=== PATIENT | female | born 1950 | race Caucasian/White ===

== ENCOUNTER → 2016-12-03 | Outpatient (CLI) | payer MEDICARE ==
--- NOTE | 2016-12-06 10:20 | MM ---
Reason for exam: screening (asymptomatic). Last mammogram was performed 1 year and 1 month ago. History: Patient is postmenopausal. Cyst aspiration of the right breast, 2001. Cyst aspiration of the left breast, 1999. Excisional biopsy of the right breast, 1995. Physical Findings: A clinical breast exam by your physician is recommended on an annual basis and results should be correlated with mammographic findings. MG 3D Screening Mammo W/Cad Bilateral CC and MLO view(s) were taken. Prior study comparison: October 23, 2015, bilateral MG screening mammo w CAD. January 17, 2014, bilateral MG screening mammo w CAD. The breast tissue is extremely dense which could obscure a lesion on mammography. Finding: There are typically benign calcifications in both breasts. No significant changes in finding since October 23, 2015 and January 17, 2014. ASSESSMENT: Benign, BI-RAD 2 RECOMMENDATION: Routine screening mammogram of both breasts in 1 year.
== END | disposition home or self-care (01) ==
LOC: RADMAMWWP 10:37
PROVIDERS: ATTEND Family Medicine
DX: Z12.31 Encounter for screening mammogram for malignant neoplasm of breast (principal)
CPT/HCPCS: 77063; G0202

== ENCOUNTER → 2017-12-05 | Outpatient (CLI) | payer MEDICARE ==
--- NOTE | 2017-12-05 15:06 | MM ---
Reason for exam: screening (asymptomatic). Last mammogram was performed 1 year ago. History: Patient is postmenopausal. Cyst aspiration of the right breast, 2001. Cyst aspiration of the left breast, 1999. Excisional biopsy of the right breast, 1995. Physical Findings: A clinical breast exam by your physician is recommended on an annual basis and results should be correlated with mammographic findings. MG 3D Screening Mammo W/Cad Bilateral CC, MLO, and XCCL view(s) were taken. Technologist: RT Homer (R)(M) Prior study comparison: December 03, 2016, bilateral MG 3d screening mammo w/cad. October 23, 2015, bilateral MG screening mammo w CAD. The breast tissue is heterogeneously dense. This may lower the sensitivity of mammography. Finding: There are typically benign vascular, round calcifications in both breasts. There is no discrete abnormality. ASSESSMENT: Benign, BI-RAD 2 RECOMMENDATION: Routine screening mammogram of both breasts in 1 year.
--- NOTE | 2017-12-05 15:28 | BD ---
EXAMINATION TYPE: Axial Bone Density DATE OF EXAM: 12/05/2017 CLINICAL HISTORY: 67-year-old female asymptomatic postmenopausal screening Height: 68 inches Weight: 160 FRAX RISK QUESTIONS: Alcohol (3 or more units per day): no Family History (Parent hip fracture): no Glucocorticoids (More than 3mos): no (Ex: prednisone, prednisolone, methylprednisolone, dexamethasone, and hydrocortisone). History of Fracture in Adulthood: no Secondary Osteoporosis: 1. Type 1 Diabetes: no 2. Hyperthyroidism: no 3. Menopause before 45: no 4. Malnutrition: no 5. Chronic liver disease: no Rheumatoid Arthritis: no Current Tobacco Use: no RISK FACTORS HISTORY OF: Family History of Osteoporosis: no Active: yes Diet low in dairy products/other sources of calcium: no Postmenopausal woman: yes Take estrogen and/or progesterone medications: no Lost more than 2 inches in height since high school: no Frequent falls: no Poor Health: no Hyperparathyroidism: no Adrenal Insufficiency: no MEDICATIONS: Prednisone or other steroids: no Thyroid Medications: no Osteoporosis Medications: no Additional Medications: blood pressure; Vitamin D3 EXAM MEASUREMENTS: Bone mineral densitometry was performed using the [employer]. Bone mineral density as measured about the Lumbar spine is: ----- L1-L4(G/cm2): 1.439 T Score Values are as follows: ----- L2: 2.2 ----- L3: 2.1 ----- L4: 1.8 ----- L1-L4: 2.2 Bone mineral density has: Decreased -6.1% since study of: 03/05/2009 Bone mineral density about the R hip (g/cm2): 1.088 Bone mineral density about the L hip (g/cm2): 1.116 T Score values are as follows: -----R Neck: 0.4 -----L Neck: 0.6 -----R Total: 1.3 -----L Total: 1.4 Bone mineral density has: Decreased -7.1% since study of: 03/05/2009 IMPRESSION: Normal (Values between +1 and -1 indicate normal bone mass). Consider repeating this study in 5 year s or sooner if there is some new clinical indication. NOTE: T-SCORE=SD OF THE YOUNG ADULT MEAN.
== END | disposition home or self-care (01) ==
LOC: RADMAMWWP 09:01
PROVIDERS: ATTEND Family Medicine
DX: Z12.31 Encounter for screening mammogram for malignant neoplasm of breast (principal); Z78.0 Asymptomatic menopausal state
CPT/HCPCS: 77063; 77067; 77080

== ENCOUNTER → 2018-12-06 | Outpatient (CLI) | payer MEDICARE ==
--- NOTE | 2018-12-06 14:23 | MM ---
Reason for exam: screening (asymptomatic). Last mammogram was performed 1 year ago. History: Patient is postmenopausal. Cyst aspiration of the right breast, 2001. Cyst aspiration of the left breast, 1999. Excisional biopsy of the right breast, 1995. Physical Findings: A clinical breast exam by your physician is recommended on an annual basis and results should be correlated with mammographic findings. MG 3D Screening Mammo W/Cad Bilateral CC and MLO view(s) were taken. Prior study comparison: December 05, 2017, bilateral MG 3d screening mammo w/cad. December 03, 2016, bilateral MG 3d screening mammo w/cad. The breast tissue is heterogeneously dense. This may lower the sensitivity of mammography. Benign appearing bilateral calcifications. No significant changes when compared with prior studies. ASSESSMENT: Benign, BI-RAD 2 RECOMMENDATION: Routine screening mammogram of both breasts in 1 year.
== END | disposition home or self-care (01) ==
LOC: RADMAMWWP 07:23
PROVIDERS: ATTEND Family Medicine
DX: Z12.31 Encounter for screening mammogram for malignant neoplasm of breast (principal)
CPT/HCPCS: 77063; 77067

== ENCOUNTER 2019-11-21 09:47 | Inpatient (IN) | payer MEDICARE ==
[2019-11-21] MEDS ORDERED: SODIUM CHLORIDE 0.9% 1,000 ML IV ONE (09:55)
[2019-11-21] MEDS ORDERED: LIDOCAINE 1% INJ 10MG/ML (20 ML MDV) ONE (10:06)
[2019-11-21] MEDS ORDERED: LIDOCAINE 1% INJ 10MG/ML (20 ML MDV) SQ ONE (10:12)
[2019-11-21] MEDS ORDERED: MIDAZOLAM 2 MG/2 ML VIAL IV ONE (10:13)
[2019-11-21] MEDS ORDERED: BIVALIRUDIN BOLUS 250 MG/50 ML IV ONE (10:20)
[2019-11-21] MEDS ORDERED: BIVALIRUDIN 250 MG in SODIUM CHLORIDE 0.9% 50 ML IV ONE (10:21)
[2019-11-21] MEDS ORDERED: CLOPIDOGREL 75 MG TAB ONE (10:24)
[2019-11-21] MEDS ORDERED: CLOPIDOGREL 75 MG TAB PO ONE (10:26)
[2019-11-21] MEDS ORDERED: niCARdipine 25 MG/10 ML VIAL ONE (10:27)
[2019-11-21] MEDS ORDERED: NITROGLYCERIN 1000MCG/10ML SYRINGE INTRACORON ONE (10:35)
[2019-11-21] MEDS ORDERED: IOPAMIDOL-370 125ML BTL INJ ONE (10:46)
[2019-11-21] MEDS ORDERED: MAG HYDROX/AL HYDROX/SIMETH 30 ML CUP PO PRN (10:53)
[2019-11-21] MEDS ORDERED: ZOLPIDEM 5 MG TAB PO PRN (10:53)
[2019-11-21] MEDS ORDERED: RX INFO: IV CONTRAST WAS GIVEN 1 EACH MISC MISCELLANE PRN (10:53)
[2019-11-21] MEDS ORDERED: NITROGLYCERIN SL TABS 0.4 MG TAB SUBLINGUAL PRN (10:53)
[2019-11-21] MEDS ORDERED: ATROPINE SULFATE 0.1 MG/ML 10ML SYRINGE IV PRN (10:53)
--- NOTE | 2019-11-21 10:57 | P.CRDCN ---
History of Present Illness Consult date: 11/21/19 Chief complaint: Chest pain History of present illness: This is a very pleasant 69-year-old female patient with no significant past medical history was brought through ambulance to the emergency department with acute inferior ST patient myocardial infarction beach she was in her usual state until earlier today when she started experiencing discomfort involving the left arm. She did have mild ongoing chest discomfort with it. Ambulance was called and the patient was brought to the emergency department where she was found to be in acute inferior ST elevation myocardial infarction. As a matter of fact the patient directly was brought to the cardiac [facility] for emergent heart catheterization which revealed acute total occlusion of the mid RCA with thrombus burden. She underwent successful aspiration thrombectomy of the RCA along with successful stenting of the RCA with an excellent angiographic results and with a ALEJANDRO-3 flow bite. She also was found to have severe disease involving the left circumflex coronary artery. By the end of the procedure, the patient was chest pain-free, no significant ST or T-wave abnormalities noted, and the patient was bradycardic throughout the case. She is going to be admitted to the intensive care unit. She will be on dual antiplatelet therapy along with high intensity statin. I would hold any beta oliver at this point in view of the bradycardia. I'm going to start the patient on small dose of MINDY inhibitor was less tearful 2.5 mg by mouth daily. An echocardiogram will be performed to establish LV function. We'll continue following up with the patient Medications and Allergies Allergies Allergy/AdvReac Type Severity Reaction Status Date / Time lisinopril Allergy Cough Verified 11/21/19 10:21 Physical Exam Vitals: Intake and Output 11/20/19 11/21/19 11/21/19 22:59 06:59 14:59 Intake Total 100 Balance 100 Intake: IV 100 Other: Weight 72.7 kg - Constitutional General appearance: no acute distress - Respiratory Respiratory: bilateral: CTA - Cardiovascular Rhythm: regular Heart sounds: normal: S1, S2 Abnormal Heart Sounds: systolic murmur Results Intake and Output 11/20/19 11/21/19 11/21/19 22:59 06:59 14:59 Intake Total 100 Balance 100 Intake: IV 100 Other: Weight 72.7 kg Patient Weight 11/22/19 06:59 Weight 72.7 kg Assessment and Plan Assessment: Assessment #[address] elevation myocardial infarction #2 dyslipidemia Plan #1 dual antiplatelet therapy #2 high intensity statin #3 lisinopril #4 hold beta oliver in view of the bradycardia #5 an echocardiogram was Doppler #6 follow-up with the patient Thank you for allowing us participate in her care
[2019-11-21] MEDS ORDERED: SODIUM CHLORIDE 0.9% 1,000 ML IV SCH (11:00)
[2019-11-21 11:14] LABS: Glucose,Whole Blood 115 mg/dL (75-99)
--- NOTE | 2019-11-21 14:25 | CC ---
CARDIAC CATHETERIZATION REPORT DATE OF SERVICE: 11/21/2019 PERFORMING PHYSICIAN: Celso Dupree MD. PROCEDURE PERFORMED: 1. Selective right and left coronary angiogram. 2. Aspiration thrombectomy from the right coronary artery. 3. Successful stenting of the right coronary artery using 3.0 x 23 mm Xience FELA with an excellent angiographic results and reduction of stenosis from 100% to 0%. 4. Left heart catheterization. INDICATION: This is a pleasant 69-year-old female patient with no significant past medical history who was brought to the emergency by ambulance with left arm discomfort and EKG concerning for acute inferior ST-elevation myocardial infarction. The decision was toward an emergent heart catheterization with possible percutaneous coronary intervention. APPROACH: Right common femoral artery. COMPLICATION: None. LEVEL OF SEDATION: Moderate with sedation length of 35 minutes. Door to balloon was 42 minutes. PROCEDURE DESCRIPTION: After obtaining an informed consent, the patient was brought to the cardiac label sewer. The right common femoral artery was cannulated using micropuncture technique, the micropuncture wire passed easily, then I placed a 6-[place] sheath 11 cm in the right common femoral artery. Subsequently, I did selective right and left coronary angiogram using JL4 and JR4 catheters. Subsequently, I did intervene on the RCA, please see a separate paragraph for that. Then I did left heart catheterization. The procedure was completed without any complication. SELECTIVE CORONARY ANGIOGRAM: 1. The right coronary artery is a large caliber vessel, it is a dominant vessel. The RCA is acutely occluded in the midportion. 2. The left main is angiographically normal, it bifurcates into LCX and LAD. 3. The LCX is a large caliber vessel, it is a nondominant vessel. The proximal circumflex is angiographically normal. The mid circumflex gives rise into a large OM branch which has a lesion appeared to be in the range of 70% to 80%. and the circumflex continues after that as a small-caliber vessel in the AV groove. 4. The LAD, the proximal LAD appeared to have mild disease only. The mid LAD appeared to be angiographically normal and the LAD distally appeared to be normal. The LAD gives rise into a large diagonal branch which seems to be angiographically normal. 5. PCI of the RCA. Anticoagulation was initiated using Angiomax with bolus and drip. Subsequently I did engage the RCA using JR3.5 guide. I did cross the acute total occlusion of the mid RCA using a whisper wire. Aspiration thrombectomy was performed using an [place] catheter. Subsequently, I did direct stenting of the lesion using 3.0 x 23 mm Xience FELA where the stent was positioned under fluoroscopy guidance and deployed under 20 atmospheres for 20 seconds. I post- dilated the stent using 3.5 mm NC balloon. The final angiogram was performed and showed a great angiographic results with a very small non flow-limiting dissection involving the proximal edge of the stent which I decided to leave it alone. 6. .. HEMODYNAMICS: The LVEDP was 20 mmHg mild gradient across the aortic valve. CONCLUSION: 1. Acute total occlusion of the RCA, successful stenting of the RCA. 2. Severe disease involving the first obtuse marginal branch of the left circumflex. 3. Mild disease involving the left anterior descending artery. 4. Elevated left ventricular end-diastolic pressure. POSTPROCEDURE MANAGEMENT: 1. Dual anti-platelet therapy. 2. Risk factor modifications. 3. PCI of the LCX. 4. Follow up with the patient. MMODL / IJN: [id number] /
[2019-11-21] MEDS: ATORVASTATIN 80 MG TAB PO SCH (20:14)
[2019-11-22 06:02] LABS: Basophils % (A) 1 %; Eosinophils # (A) 0.1 k/uL (0-0.7); Eosinophils % (A) 2 %; HGB 13.6 gm/dL (11.4-16.0); Lymphocytes # (A) 1.6 k/uL (1.0-4.8); Lymphocytes % (A) 21 %; MCH 31.5 pg (25.0-35.0); MCHC 32.5 g/dL (31.0-37.0); MCV 96.9 fL (80.0-100.0); Mean Platelet Volume 7.1; Monocytes # (A) 0.5 k/uL (0-1.0); Monocytes % (A) 6 %; Neutrophils # (A) 5.4 k/uL (1.3-7.7); Neutrophils % (A) 70 %; Platelet Count 272 k/uL (150-450); RBC 4.33 m/uL (3.80-5.40); RDW 12.2 % (11.5-15.5); WBC 7.7 k/uL (3.8-10.6)
[2019-11-22 06:15] LABS: ALT 14 U/L (4-34); AST 37 U/L (14-36); African American GFR (CKD) >90 (>60 ml/min/1.73 sqM); Albumin 3.7 g/dL (3.5-5.0); Alkaline Phosphatase 67 U/L (38-126); Anion Gap 6 mmol/L; Blood Urea Nitrogen 12 mg/dL (7-17); Carbon Dioxide 27 mmol/L (22-30); Chloride 105 mmol/L (98-107); Glucose 110 mg/dL (74-99); Non-African American GFR(CKD) 80 (>60 ml/min/1.73 sqM); Potassium 4.1 mmol/L (3.5-5.1); Sodium 138 mmol/L (137-145); Total Bilirubin 0.6 mg/dL (0.2-1.3); Total Protein 6.7 g/dL (6.3-8.2)
--- NOTE | 2019-11-22 07:30 | P.PN ---
Subjective Progress Note Date: 11/22/19 Principal diagnosis: STEMI This is a 69-year-old female patient with hypertension who presented to the hospital with a chest discomfort and was diagnosed with acute inferior ST pa tient myocardial infarction. She underwent an emergent heart catheterization and was found to have acute total occlusion of the mid RCA which was opened and stented with severe disease involving the left circumflex coronary artery. The patient was seen today, 11/22/2019. She is asymptomatic from a cardiovascular standpoint of view. She denies chest pain, chest discomfort, shortness of breath, dizziness, heart racing, and no loss of consciousness but she has been maintaining normal sinus mechanism. No arrhythmia noted throughout her hospital stay in the ICU. Hemodynamically she is stable but she is on dual antiplatelet therapy along with high intensity statin. An echocardiogram was ordered and will follow-up with that. The right groin is soft and nontender and without any bruises. Objective - Vital Signs Vital signs: Vital Signs Temp 98.4 F 11/22/19 04:00 Pulse 61 11/22/19 07:00 Resp 19 11/22/19 07:00 BP 129/68 11/22/19 07:00 Pulse Ox 93 L 11/22/19 07:00 Intake & Output 11/21/19 11/22/19 11/22/19 18:59 06:59 18:59 Intake Total 1525 1130 Output Total 400 0 Balance 1525 730 0 Weight 72.7 kg 72.1 kg Intake: IV 625 450 Sodium Chloride 0.9% 1, 525 450 000 ml @ 75 mls/hr IV . [id number] KIERA Rx#:[id number] Intake, IV Titration 450 Amount Sodium Chloride 0.9% 1, 450 000 ml @ 75 mls/hr IV . [id number] KIERA Rx#:[id number] Oral 450 680 Output: Urine 400 0 Other: Voiding Method Bedpan Toilet Bedside Commode # Voids 1 1 ABP, PAP, CO, CI - Last Documented Arterial Blood Pressure 162/75 - Constitutional General appearance: Present: no acute distress - Respiratory Respiratory: bilateral: CTA - Cardiovascular Rhythm: regular Heart sounds: normal: S1, S2 - Labs CBC & Chem 7: 11/22/19 05:39 11/22/19 05:39 Labs: Abnormal Lab Results - Last 24 Hours (Table) 11/21/19 11/22/19 Range/Units 11:11 05:39 Glucose 110 H (74-99) mg/dL POC Glucose (mg/dL) 115 H (75-99) mg/dL AST 37 H (14-36) U/L Assessment and Plan Assessment: Assessment #[address] elevation myocardial infarction #2 dyslipidemia Plan #1 dual antiplatelet therapy #2 high intensity statin #3 add losartan to the current medical regimen #4 add metoprolol to the current medical regimen #5 follow-up on the echocardiogram #6 the patient can be transferred out of the ICU
[2019-11-22] MEDS ORDERED: LISINOPRIL 2.5 MG TAB PO SCH (09:00)
[2019-11-22] MEDS: CLOPIDOGREL 75 MG TAB PO SCH (09:55)
[2019-11-22] MEDS: METOPROLOL TARTRATE 12.5 MG TAB PO SCH ×2 (09:55→20:23)
[2019-11-22] MEDS: LOSARTAN 25 MG TAB PO SCH (09:56)
[2019-11-22 10:04] VITALS: BMI 24.1
--- NOTE | 2019-11-22 16:00 | ECHOF ---
Referral Reason:STEMI MEASUREMENTS -------- HEIGHT: 172.7 cm WEIGHT: 72.6 kg BP: 153/69 IVSd: 0.9 cm (0.6 - 1.1) LVIDd: 3.7 cm (3.9 - 5.3) LVPWd: 1.1 cm (0.6 - 1.1) IVSs: 1.7 cm LVIDs: 2.5 cm LVPWs: 1.0 cm RVIDd: 2.5 cm (< 3.3) LAESV Index (A-L): 16.65 ml/m Ao Diam: 2.7 cm (2.0 - 3.7) AV Cusp: 1.6 cm (1.5 - 2.6) EPSS: 0.5 cm MV E Arnie: 0.76 m/s MV DecT: 252 ms MV A Arnie: 1.00 m/s MV E/A Ratio: 0.76 RAP: 5.00 mmHg RVSP: 32.55 mmHg MV EF SLOPE: 52.48 mm/s (70 - 150) MV EXCURSION: 9.72 mm (> 18.000) FINDINGS -------- Sinus rhythm. This was a technically difficult study with suboptimal apical views. Patient is post cardiac catheterization and cannot be in left lateral position. The left ventricular size is normal. Left ventricular wall thickness is normal. Overall left vent ricular systolic function is low-normal with, an EF between 50 - 55 %. The diastolic filling patter n is normal for the age of the patient {E/E'}. The right ventricle is normal in size. Normal LA size by volume 22+/-6 ml/m2. The right atrial size is normal. 5.0mg of Lumason was utilized for enhancement of images Interatrial and interventricular septum intact. There is mild aortic valve sclerosis. There is no evidence of aortic regurgitation. There is no e vidence of aortic stenosis. No mitral regurgitation. Mild tricuspid regurgitation present. There is no evidence of pulmonary hypertension. The right v entricular systolic pressure, as measured by Doppler, is 32.55mmHg. There is no pulmonic regurgitation present. The aortic root size is normal. Normal inferior vena cava with normal inspiratory collapse consistent with estimated right atrial pre ssure of 5 mmHg. There is no pericardial effusion. CONCLUSIONS -------- 1. Sinus rhythm. 2. This was a technically difficult study with suboptimal apical views. 3. Patient is post cardiac catheterization and cannot be in left lateral position. 4. The left ventricular size is normal. 5. Left ventricular wall thickness is normal. 6. Overall left ventricular systolic function is low-normal with, an EF between 50 - 55 %. 7. The diastolic filling pattern is normal for the age of the patient {E/E'} 8. The right ventricle is normal in size. 9. Normal LA size by volume 22+/-6 ml/m2. 10. The right atrial size is normal. 11. 5.0mg of Lumason was utilized for enhancement of images 12. Interatrial and interventricular septum intact. 13. There is mild aortic valve sclerosis. 14. There is no evidence of aortic regurgitation. 15. There is no evidence of aortic stenosis. 16. No mitral regurgitation. 17. Mild tricuspid regurgitation present. 18. There is no evidence of pulmonary hypertension. 19. The right ventricular systolic pressure, as measured by Doppler, is 32.55mmHg. 20. There is no pulmonic regurgitation present. 21. The aortic root size is normal. 22. Normal inferior vena cava with normal inspiratory collapse consistent with estimated right atrial pressure of 5 mmHg. 23. There is no pericardial effusion. PRESS READER: Amy Milner RDCS
[2019-11-22] MEDS: ATORVASTATIN 80 MG TAB PO SCH (20:23)
[2019-11-23 08:07] VITALS: BP 111/58; PULSE 75; RESP 16; TEMP 98
[2019-11-23] MEDS: CLOPIDOGREL 75 MG TAB PO SCH (08:37)
[2019-11-23] MEDS: METOPROLOL TARTRATE 12.5 MG TAB PO SCH (08:37)
[2019-11-23] MEDS: LOSARTAN 25 MG TAB PO SCH (08:37)
[2019-11-23] MEDS ORDERED: ASPIRIN 81 MG PO SCH (10:30)
--- NOTE | 2019-11-23 11:14 | P.PN ---
Subjective Progress Note Date: 11/23/19 This is a 69-year-old female who presented to the hospital with an acute inferior ST elevation myocardial infarction. She was taken to the cardiac catheterization lab by Dr. Liz where she underwent angioplasty and stenting of the right coronary artery. Patient also has a significant blockage in her circumflex artery. She was seen and examined this morning, denied any chest pain or difficulty in breathing she's been ambulating without any difficulty. Blood pressure 110/50 with a heart rate in the 70s, 94% on room air. Echocardiogram with Doppler study revealed an ejection fraction of 50-55%. Objective - Vital Signs Vital signs: Vital Signs Temp 98 F 11/23/19 08:00 Pulse 75 11/23/19 08:00 Resp 16 11/23/19 08:00 BP 111/58 11/23/19 08:00 Pulse Ox 94 L 11/23/19 08:00 Intake & Output 11/22/19 11/23/19 11/23/19 18:59 06:59 18:59 Intake Total 790 180 Output Total 0 Balance 790 180 Weight 72.1 kg 71.6 kg Intake: Oral 790 180 Output: Urine 0 Other: Voiding Method Toilet Toilet Toilet # Voids 1 ABP, PAP, CO, CI - Last Documented Arterial Blood Pressure 162/75 - Exam PHYSICAL EXAMINATION: GENERAL: 69-year-old female in no acute distress at the time of my examination HEENT: Head is atraumatic, normocephalic. Pupils equal, round. Sclera anicteric. Conjunctiva are clear. Mucous membranes of the mouth are moist. Neck is supple. There is no elevated jugular venous pressure. No carotid bruit is heard. HEART EXAMINATION: Heart S1, S2 normal. No murmur or gallop heard. CHEST EXAMINATION: Lungs are clear to auscultation and precussion. No chest wall tenderness is noted on palpation or with deep breathing. ABDOMEN: Soft, nontender. Bowel sounds are heard. No organomegaly noted. EXTREMITIES: 2+ peripheral pulses with no evidence of peripheral edema and no calf tenderness noted. NEUROLOGIC [patient is awake, alert and oriented 3 . - Labs CBC & Chem 7: 11/22/19 05:39 11/22/19 05:39 Assessment and Plan Plan: Assessment and plan #[address] elevation myocardial infarction, status post angioplasty and stenting of the RCA. Patient also has a critical lesion in the circumflex. #2 hyperlipidemia Plan Patient may be discharged home today on dual antiplatelet therapy and high intensity statin. She will also be on losartan, metoprolol, and sublingual nitroglycerin. Echocardiogram with Doppler study revealed an ejection fraction of 50-55%. From cardiology's perspective, patient may be able to be discharged home today. We will make a follow-up appointment to see Dr. Liz in the office post discharge. DNP note has been reviewed, I agree with a documented findings and plan of care. Patient was seen and examined.
== END 2019-11-23 12:33 | disposition home or self-care (01) | DRG 247 ==
LOC: 2ORMAIN 09:47 → 2SICU 10:52 → 3SCARD 11-22 16:07
PROVIDERS: ADMIT Internal Medicine Interventional Cardiology; ATTEND Internal Medicine Interventional Cardiology
PROC: 4A023N7 Measurement of Cardiac Sampling and Pressure, Left Heart, Percutaneous Approach (ICD-10-PCS; principal; 2019-11-21 09:58)
PROC: B2111ZZ Fluoroscopy of Multiple Coronary Arteries using Low Osmolar Contrast (ICD-10-PCS; principal; 2019-11-21 09:58)
PROC: 02C03ZZ Extirpation of Matter from Coronary Artery, One Artery, Percutaneous Approach (ICD-10-PCS; principal; 2019-11-21 09:58)
PROC: 027034Z Dilation of Coronary Artery, One Artery with Drug-eluting Intraluminal Device, Percutaneous Approach (ICD-10-PCS; principal; 2019-11-21 09:58)
DX: I21.19 ST elevation (STEMI) myocardial infarction involving other coronary artery of inferior wall (principal); E78.00 Pure hypercholesterolemia, unspecified; I25.10 Atherosclerotic heart disease of native coronary artery without angina pectoris; I10 Essential (primary) hypertension; E78.5 Hyperlipidemia, unspecified; R00.1 Bradycardia, unspecified; Z79.899 Other long term (current) drug therapy
CPT/HCPCS: 80053; 85025; 93306; 93458

== ENCOUNTER → 2020-01-25 | Outpatient (CLI) | payer MEDICARE ==
[2020-01-25 11:13] LABS: HCT 43.1 % (34.0-46.0); MCH 31.6 pg (25.0-35.0); MCHC 32.5 g/dL (31.0-37.0); MCV 97.1 fL (80.0-100.0); Platelet Count 261 k/uL (150-450); RBC 4.44 m/uL (3.80-5.40); RDW 12.3 % (11.5-15.5); WBC 5.7 k/uL (3.8-10.6)
[2020-01-25 11:27] LABS: Potassium 4.5 mmol/L (3.5-5.1)
== END | disposition home or self-care (01) ==
LOC: LABWHC1 09:48
PROVIDERS: ATTEND Internal Medicine Interventional Cardiology
DX: Z01.818 Encounter for other preprocedural examination (principal); I25.10 Atherosclerotic heart disease of native coronary artery without angina pectoris
CPT/HCPCS: 80051; 82565; 84520; 85027

== ENCOUNTER 2020-01-31 06:15 | Day surgery (SDC) | payer MEDICARE ==
[~2020-01-31 06:15] MED LIST: ALPRAZolam 0.25 MG TAB PO PRN; ALPRAZolam 0.5 MG TAB PO PRN; ASPIRIN 325 MG TAB PO STA; ATORVASTATIN 80 MG TAB PO STA; NITROGLYCERIN SL TABS 0.4 MG TAB SUBLINGUAL PRN; SODIUM CHLORIDE 0.9% 1,000 ML in EMPTY BAG 1 BAG IV ONE
[2020-01-31] MEDS ORDERED: VERAPAMIL 2.5 MG/ML 2 ML AMP ONE (07:23)
[2020-01-31] MEDS ORDERED: LIDOCAINE 1% INJ 10MG/ML (20 ML MDV) ONE (07:23)
[2020-01-31] MEDS ORDERED: MIDAZOLAM 2 MG/2 ML VIAL IVP ONE (07:43)
[2020-01-31] MEDS ORDERED: LIDOCAINE 1% INJ 10MG/ML (20 ML MDV) SQ ONE (07:45)
[2020-01-31] MEDS ORDERED: BIVALIRUDIN BOLUS 250 MG/50 ML IV ONE (07:49)
[2020-01-31] MEDS ORDERED: BIVALIRUDIN 250 MG in SODIUM CHLORIDE 0.9% 50 ML IV ONE (07:50)
[2020-01-31] MEDS: NITROGLYCERIN 1000MCG/10ML SYRINGE INTRACORON ONE ×3 (08:01→08:16)
[2020-01-31] MEDS ORDERED: IOPAMIDOL-370 100ML BTL INJ ONE (08:17)
[2020-01-31] MEDS ORDERED: CLOPIDOGREL 75 MG TAB ONE (08:18)
[2020-01-31] MEDS ORDERED: CLOPIDOGREL 75 MG TAB PO ONE (08:18)
[2020-01-31] MEDS ORDERED: ZOLPIDEM 5 MG TAB PO PRN (08:28)
[2020-01-31] MEDS ORDERED: RX INFO: IV CONTRAST WAS GIVEN 1 EACH MISC MISCELLANE PRN (08:28)
[2020-01-31] MEDS ORDERED: ATROPINE SULFATE 0.1 MG/ML 10ML SYRINGE IV PRN (08:28)
[2020-01-31] MEDS ORDERED: MAG HYDROX/AL HYDROX/SIMETH 30 ML CUP PO PRN (08:28)
[2020-01-31] MEDS ORDERED: METOPROLOL TARTRATE 12.5 MG TAB PO SCH (09:00)
--- NOTE | 2020-01-31 11:25 | PTCA ---
PERCUTANEOUSTRANS CORORONARY ANGIOGRAPHY DATE OF SERVICE: 01/31/2020 PERFORMING PHYSICIAN: Celso Dupree MD. PROCEDURE PERFORMED: Successful stenting of the mid left circumflex using 2.0.0 x 15 mm yarely and 2.5 x 8 mm Xience FELA with an excellent angiographic results. INDICATION: This is a very pleasant 69-year-old female patient with history of coronary artery disease who is known to have severe disease involving the mid left circumflex, was brought today for PCI of the LCX. APPROACH: Right common femoral artery. COMPLICATION: None. LEVEL OF SEDATION: Moderate with sedation length of 36 minutes. PROCEDURE DESCRIPTION: After obtaining an informed consent, the patient was brought to the cardiac cath lab nurse. The right common femoral artery was cannulated using micropuncture technique and a micropuncture wire passed easily, then I placed a 6-[place]izen [place] sheath at the right common femoral artery. Anticoagulation was initiated using Angiomax with bolus and drip. Subsequently, I did engage the left main using an XP3 guide. I did wire the left circumflex using a whisper wire and run-through wire because the circumflex was very tortuous. After that PTCA ballooning was performed using 2.0 x 12 mm balloon before I deployed 2.0 x 15 mm Yare[place] drug-eluting stent where the stent was positioned under fluoroscopy guidance and deployed under 18 atmospheres for 20 seconds. The following angiogram showed a hazy area proximal to the stented segment and I decided to cover that with a stent. I deployed 2.5 x 8 mm Xience FELA where the stent was positioned under fluoroscopy guidance and deployed under 16 atmospheres for 20 seconds. The area of overlap between the 2 stents was dilated using the stent balloon. The final angiogram showed excellent angiographic results and the procedure was completed without any complication. POSTPROCEDURE MANAGEMENT: 1. Dual anti-platelet therapy. 2. Risk factors modifications. 3. Follow up with the patient. MMODL / IJN: [id number] /
[2020-01-31] MEDS: SODIUM CHLORIDE 0.9% 1,000 ML IV SCH ×2 (12:25→23:04)
[2020-01-31 15:06] VITALS: BMI 23.2
[2020-01-31] MEDS ORDERED: ACETAMINOPHEN TAB 325 MG TAB PO PRN (15:28)
[2020-01-31] MEDS ORDERED: ATORVASTATIN 80 MG TAB PO SCH (21:00)
[2020-01-31] MEDS: METOPROLOL TARTRATE 12.5 MG TAB PO SCH (21:23)
[2020-02-01 08:15] LABS: Basophils # (A) 0.1 k/uL (0-0.2); Basophils % (A) 1 %; Eosinophils # (A) 0.2 k/uL (0-0.7); Eosinophils % (A) 5 %; HCT 40.3 % (34.0-46.0); Lymphocytes % (A) 21 %; MCH 31.4 pg (25.0-35.0); MCHC 32.3 g/dL (31.0-37.0); MCV 97.3 fL (80.0-100.0); Mean Platelet Volume 7.1; Monocytes # (A) 0.2 k/uL (0-1.0); Monocytes % (A) 5 %; Neutrophils # (A) 3.3 k/uL (1.3-7.7); Neutrophils % (A) 67 %; Platelet Count 214 k/uL (150-450); RBC 4.14 m/uL (3.80-5.40); RDW 12.2 % (11.5-15.5); WBC 4.9 k/uL (3.8-10.6)
[2020-02-01] MEDS: METOPROLOL TARTRATE 12.5 MG TAB PO SCH (08:18)
[2020-02-01 08:34] LABS: African American GFR (CKD) >90 (>60 ml/min/1.73 sqM); Anion Gap 5 mmol/L; Blood Urea Nitrogen 9 mg/dL (7-17); Calcium 8.7 mg/dL (8.4-10.2); Carbon Dioxide 28 mmol/L (22-30); Chloride 106 mmol/L (98-107); Glucose 114 mg/dL (74-99); Non-African American GFR(CKD) 85 (>60 ml/min/1.73 sqM); Potassium 4.2 mmol/L (3.5-5.1); Sodium 139 mmol/L (137-145)
[2020-02-01] MEDS ORDERED: LOSARTAN 25 MG TAB PO SCH (09:00)
[2020-02-01] MEDS ORDERED: ASPIRIN 81 MG PO SCH (09:00)
[2020-02-01] MEDS ORDERED: LACTOBACILLUS ACIDOPH & BULGAR 1 EACH PACKET PO SCH (09:00)
[2020-02-01] MEDS ORDERED: CLOPIDOGREL 75 MG TAB PO SCH (09:00)
[2020-02-01 09:04] VITALS: BP 120/80; PULSE 74; RESP 18; TEMP 97.9
--- NOTE | 2020-02-01 14:35 | DS ---
DISCHARGE SUMMARY ADMISSION DATE: 01/31/2020 DISCHARGE DATE: 02/01/2020 BRIEF HISTORY: This is a 69-year-old female patient who was admitted yesterday and underwent successful stenting of the left circumflex with an excellent angiographic results and without any complication. The patient was seen today. She is going to be discharged home. I will follow up with the patient in the office next week. MMANAIS / ZUHAIR: [id number] /
== END 2020-02-01 10:13 | disposition home or self-care (01) ==
LOC: CATHCVL 06:15 → 3NCARDOBS 10:53 → CATHCVL 02-01 10:13
PROVIDERS: ATTEND Internal Medicine Interventional Cardiology
DX: I25.10 Atherosclerotic heart disease of native coronary artery without angina pectoris (principal); I10 Essential (primary) hypertension; E78.5 Hyperlipidemia, unspecified; Z79.02 Long term (current) use of antithrombotics/antiplatelets; Z79.82 Long term (current) use of aspirin; Z79.899 Other long term (current) drug therapy; Z82.49 Family history of ischemic heart disease and other diseases of the circulatory system
CPT/HCPCS: 80048; 85025; C9600; C1769 ×4; C1725; C1887; C1894; C1874 ×2; J2250; J2001; J0583; Q9967

== ENCOUNTER 2020-10-10 08:30 | Emergency (ER) | payer MEDICARE ==
[2020-10-10 08:35] VITALS: TEMP 98
--- NOTE | 2020-10-10 08:53 | ED ---
General Adult HPI - General Chief complaint: Recheck/Abnormal Lab/Rx Stated complaint: High BP/blood in urine Time Seen by Provider: 10/10/20 08:38 Source: patient, RN notes reviewed Mode of arrival: ambulatory Limitations: no limitations - History of Present Illness Initial comments: Patient is a pleasant 70-year-old female presenting to the emergency department with concerns regarding hematuria. Patient has had multiple episodes of hematuria and did see her urologist in May. Patient did have computed tomography scan done as well as cystoscopy. Patient states there is unclear source. Patient denies any dysuria. Patient has had multiple episodes since being on Plavix. Patient is still on Plavix. Patient has not had an episode since May and states she is fearful because of it. Patient states she did take her blood pressure and it was high, 180/100. No chest pain or dyspnea. No abdominal pain. No other areas of bleeding. - Related Data Home Medications Medication Instructions Recorded Confirmed Atorvastatin [Lipitor] 40 mg PO HS 10/10/20 10/10/20 Fluorometholone 0.1% Ophth Apurva 1 drop LEFT EYE DAILY 10/10/20 10/10/20 [Fml] Metoprolol Tartrate [Lopressor] 12.5 mg PO BID 10/10/20 10/10/20 Previous Rx's Medication Instructions Recorded Aspirin 81 mg PO DAILY #30 chew 11/23/19 Clopidogrel [Plavix] 75 mg PO DAILY #30 tab 11/23/19 Losartan [Cozaar] 12.5 mg PO DAILY #30 tab 11/23/19 Nitroglycerin Sl Tabs [Nitrostat] 0.4 mg SUBLINGUAL Q5M PRN #25 tab 11/23/19 Allergies Allergy/AdvReac Type Severity Reaction Status Date / Time lisinopril AdvReac Cough Verified 10/10/20 09:05 Review of Systems ROS Statement: Those systems with pertinent positive or pertinent negative responses have been documented in the HPI. ROS Other: All systems not noted in ROS Statement are negative. Constitutional: Denies: fever, chills Eyes: Denies: eye pain ENT: Denies: ear pain Respiratory: Denies: cough Cardiovascular: Denies: chest pain Endocrine: Denies: fatigue Gastrointestinal: Denies: abdominal pain, nausea, vomiting Genitourinary: Reports: hematuria. Denies: urgency, dysuria, frequency Musculoskeletal: Denies: back pain Skin: Denies: rash Neurological: Denies: weakness Past Medical History Past Medical History: Asthma, Hyperlipidemia, Hypertension, Myocardial Infarction (CT) Last Myocardial Infarction Date:: 11/21/19 History of Any Multi-Drug Resistant Organisms: None Reported Past Surgical History: Appendectomy, Heart Catheterization With Stent Additional Past Surgical History / Comment(s): lt cornea transplant, Left cataract , colonoscopy Past Anesthesia/Blood Transfusion Reactions: No Reported Reaction Date of Last Stent Placement:: 11/21/19 Past Psychological History: No Psychological Hx Reported Smoking Status: Never smoker Past Alcohol Use History: None Reported Past Drug Use History: None Reported - Past Family History Father History Unknown: Yes Family Medical History: Coronary Artery Disease (CAD) Mother Family Medical History: Coronary Artery Disease (CAD) General Exam Limitations: no limitations General appearance: alert, in no apparent distress Head exam: Present: normocephalic Eye exam: Present: normal appearance Neck exam: Present: normal inspection Respiratory exam: Present: normal lung sounds bilaterally Cardiovascular Exam: Present: regular rate, normal rhythm GI/Abdominal exam: Present: soft. Absent: distended, tenderness, guarding, rebound, rigid, pulsatile mass Extremities exam: Present: normal inspection Back exam: Present: normal inspection. Absent: CVA tenderness (R), CVA tenderness (L) Neurological exam: Present: alert Psychiatric exam: Present: normal affect, normal mood Skin exam: Present: normal color Course Vital Signs 10/10/20 10/10/20 08:33 09:32 Temperature 98 F Pulse Rate 109 H 72 Respiratory 20 18 Rate Blood Pressure 176/95 145/78 O2 Sat by Pulse 97 98 Oximetry Medical Decision Making - Medical Decision Making Patient reevaluated and resting comfortably in bed. Blood pressure improved. Patient symptom-free. Patient updated on results and need for follow-up. Patient states last stents were placed in November - Lab Data Result diagrams: 10/10/20 09:09 10/10/20 09:09 Lab Results 10/10/20 10/10/20 10/10/20 Range/Units 09:09 09:09 09:09 WBC 8.1 (3.8-10.6) k/uL RBC 4.75 (3.80-5.40) m/uL Hgb 15.9 (11.4-16.0) gm/dL Hct 45.6 (34.0-46.0) % MCV 95.8 (80.0-100.0) fL MCH 33.4 (25.0-35.0) pg MCHC 34.8 (31.0-37.0) g/dL RDW 11.9 (11.5-15.5) % Plt Count 299 (150-450) k/uL MPV 6.8 Neutrophils % 80 % Lymphocytes % 14 % Monocytes % 4 % Eosinophils % 1 % Basophils % 1 % Neutrophils # 6.5 (1.3-7.7) k/uL Lymphocytes # 1.1 (1.0-4.8) k/uL Monocytes # 0.3 (0-1.0) k/uL Eosinophils # 0.1 (0-0.7) k/uL Basophils # 0.0 (0-0.2) k/uL PT 10.1 (9.0-12.0) sec INR 0.9 (<1.2) APTT 22.1 (22.0-30.0) sec Sodium 137 (137-145) mmol/L Potassium 4.3 (3.5-5.1) mmol/L Chloride 103 (98-107) mmol/L Carbon Dioxide 26 (22-30) mmol/L Anion Gap 8 mmol/L BUN 10 (7-17) mg/dL Creatinine 0.92 (0.52-1.04) mg/dL Est GFR (CKD-EPI)AfAm 74 (>60 ml/min/1.73 sqM) Est GFR (CKD-EPI)NonAf 64 (>60 ml/min/1.73 sqM) Glucose 135 H (74-99) mg/dL Calcium 10.0 (8.4-10.2) mg/dL Total Bilirubin 0.8 (0.2-1.3) mg/dL AST 29 (14-36) U/L ALT 20 (4-34) U/L Alkaline Phosphatase 97 (38-126) U/L Total Protein 8.0 (6.3-8.2) g/dL Albumin 4.8 (3.5-5.0) g/dL Urine Color Urine Appearance (Clear) Urine pH (5.0-8.0) Ur Specific [place] (1.001-1.035) Urine Protein (Negative) Urine Glucose (UA) (Negative) Urine Ketones (Negative) Urine Blood (Negative) Urine Nitrite (Negative) Urine Bilirubin (Negative) Urine Urobilinogen (<2.0) mg/dL Ur Leukocyte Esterase (Negative) Urine RBC (0-5) /hpf Urine WBC (0-5) /hpf Urine Mucus (None) /hpf 10/10/20 Range/Units 09:32 WBC (3.8-10.6) k/uL RBC (3.80-5.40) m/uL Hgb (11.4-16.0) gm/dL Hct (34.0-46.0) % MCV (80.0-100.0) fL MCH (25.0-35.0) pg MCHC (31.0-37.0) g/dL RDW (11.5-15.5) % Plt Count (150-450) k/uL MPV Neutrophils % % Lymphocytes % % Monocytes % % Eosinophils % % Basophils % % Neutrophils # (1.3-7.7) k/uL Lymphocytes # (1.0-4.8) k/uL Monocytes # (0-1.0) k/uL Eosinophils # (0-0.7) k/uL Basophils # (0-0.2) k/uL PT (9.0-12.0) sec INR (<1.2) APTT (22.0-30.0) sec Sodium (137-145) mmol/L Potassium (3.5-5.1) mmol/L Chloride (98-107) mmol/L Carbon Dioxide (22-30) mmol/L Anion Gap mmol/L BUN (7-17) mg/dL Creatinine (0.52-1.04) mg/dL Est GFR (CKD-EPI)AfAm (>60 ml/min/1.73 sqM) Est GFR (CKD-EPI)NonAf (>60 ml/min/1.73 sqM) Glucose (74-99) mg/dL Calcium (8.4-10.2) mg/dL Total Bilirubin (0.2-1.3) mg/dL AST (14-36) U/L ALT (4-34) U/L Alkaline Phosphatase (38-126) U/L Total Protein (6.3-8.2) g/dL Albumin (3.5-5.0) g/dL Urine Color Red Urine Appearance Cloudy H (Clear) Urine pH 7.5 (5.0-8.0) Ur Specific [place] 1.016 (1.001-1.035) Urine Protein 1+ H (Negative) Urine Glucose (UA) Negative (Negative) Urine Ketones 1+ H (Negative) Urine Blood Large H (Negative) Urine Nitrite Negative (Negative) Urine Bilirubin Negative (Negative) Urine Urobilinogen <2.0 (<2.0) mg/dL Ur Leukocyte Esterase Moderate H (Negative) Urine RBC >182 H (0-5) /hpf Urine WBC 3 (0-5) /hpf Urine Mucus Many H (None) /hpf - Radiology Data Radiology results: image reviewed (KUB reveals no acute process) Disposition Clinical Impression: Hematuria Disposition: HOME SELF-CARE Condition: Stable Instructions (If sedation given, give patient instructions): Hematuria (ED) Additional Instructions: Please do follow-up to primary care physician and urologist in the next day or 2 for recheck. Return for shortness of breath, fatigue, increased bleeding, bleeding from other sites, worsening symptoms or other concerns. Hold Plavix for the next one to 2 days. Is patient prescribed a controlled substance at d/c from ED?: No Referrals: Heber Morton MD [Primary Care Provider] - 1-2 days Ubaldo Funes MD [STAFF PHYSICIAN] - 1-2 days Time of Disposition: 11:15
[2020-10-10 09:20] LABS: Basophils % (A) 1 %; Eosinophils # (A) 0.1 k/uL (0-0.7); Eosinophils % (A) 1 %; HCT 45.6 % (34.0-46.0); HGB 15.9 gm/dL (11.4-16.0); Lymphocytes # (A) 1.1 k/uL (1.0-4.8); Lymphocytes % (A) 14 %; MCH 33.4 pg (25.0-35.0); MCHC 34.8 g/dL (31.0-37.0); MCV 95.8 fL (80.0-100.0); Mean Platelet Volume 6.8; Monocytes # (A) 0.3 k/uL (0-1.0); Monocytes % (A) 4 %; Neutrophils # (A) 6.5 k/uL (1.3-7.7); Neutrophils % (A) 80 %; Platelet Count 299 k/uL (150-450); RBC 4.75 m/uL (3.80-5.40); RDW 11.9 % (11.5-15.5); WBC 8.1 k/uL (3.8-10.6)
[2020-10-10 09:32] VITALS: RESP 18
[2020-10-10 09:34] LABS: Albumin 4.8 g/dL (3.5-5.0); Potassium 4.3 mmol/L (3.5-5.1); Total Bilirubin 0.8 mg/dL (0.2-1.3)
[2020-10-10 09:59] LABS: INR 0.9 (<1.2)
[2020-10-10 10:00] LABS: Partial Thromboplastin Time 22.1 sec (22.0-30.0); Prothrombin Time 10.1 sec (9.0-12.0)
--- NOTE | 2020-10-10 10:19 | XR ---
EXAMINATION TYPE: XR abdomen 1V DATE OF EXAM: 10/10/2020 COMPARISON: NONE HISTORY: Pain TECHNIQUE: Single supine KUB image of the abdomen is obtained FINDINGS: Small bowel demonstrates no evidence for dilatation or air fluid levels. Gas and fecal material is seen in non-distended colon. No convincing evidence for pneumoperitoneum. No unusual calcifications. The lung bases are clear. The osseous structures are intact. IMPRESSION: 1. Overall nonobstructive bowel gas pattern.
[2020-10-10 10:31] LABS: Appearance,Urine Cloudy (Clear); Bilirubin,Urine Negative (Negative); Blood,Urine Large (Negative); Color,Urine Red; Glucose,Urine (UA) Negative (Negative); Ketones,Urine 1+ (Negative); Leukocyte Esterase,Urine Moderate (Negative); Mucus,Urine Many /hpf; Nitrite,Urine Negative (Negative); PH, Urine 7.5 (5.0-8.0); Protein,Urine 1+ (Negative); RBC,Urine >182 /hpf (0-5); Urobilinogen,Urine <2.0 mg/dL (<2.0); WBC,Urine 3 /hpf (0-5)
[2020-10-10 10:32] LABS: Specific Gravity,Urine 1.016 (1.001-1.035)
[2020-10-10 11:25] VITALS: BP 147/68; PULSE 74
== END 2020-10-10 11:30 | disposition home or self-care (01) ==
LOC: EC 08:30
DX: R31.9 Hematuria, unspecified (principal); I10 Essential (primary) hypertension; J45.909 Unspecified asthma, uncomplicated; E78.5 Hyperlipidemia, unspecified; I25.2 Old myocardial infarction; Z79.899 Other long term (current) drug therapy; Z79.82 Long term (current) use of aspirin; Z79.02 Long term (current) use of antithrombotics/antiplatelets
CPT/HCPCS: 36415; 74018; 80053; 81001; 85025; 85610; 85730; 87086; 96374; 99284

== ENCOUNTER → 2023-02-08 | Outpatient (CLI) | payer MEDICARE ==
[2023-02-08 15:48] LABS: ALT 38 U/L (8-44); AST 34 U/L (13-35); Chol/HDL Ratio 3.15 Ratio; LDL Cholesterol,Calculated 106.1 mg/dL (0.0-131.0)
== END | disposition home or self-care (01) ==
LOC: LABWHC1 08:11
PROVIDERS: ATTEND Internal Medicine Interventional Cardiology
DX: E78.2 Mixed hyperlipidemia (principal)
CPT/HCPCS: 36415; 80061; 84450; 84460

== ENCOUNTER → 2024-01-18 | Outpatient (CLI) | payer MEDICARE ==
[2024-01-18 10:46] LABS: ALT 27 U/L (8-44); AST 27 U/L (13-35); Chol/HDL Ratio 2.75 Ratio; LDL Cholesterol,Calculated 79.5 mg/dL (0.0-131.0)
== END | disposition home or self-care (01) ==
LOC: LABWHC1 07:18
PROVIDERS: ATTEND Internal Medicine Interventional Cardiology
DX: E78.00 Pure hypercholesterolemia, unspecified (principal)
CPT/HCPCS: 36415; 80061; 84450; 84460

== ENCOUNTER 2024-02-29 05:58 | Day surgery (SDC) | payer MEDICARE ==
[~2024-02-29 05:58] MED LIST changes: -ALPRAZolam 0.25 MG TAB PO PRN; -ALPRAZolam 0.5 MG TAB PO PRN; -ASPIRIN 325 MG TAB PO STA; -ATORVASTATIN 80 MG TAB PO STA; -NITROGLYCERIN SL TABS 0.4 MG TAB SUBLINGUAL PRN; -SODIUM CHLORIDE 0.9% 1,000 ML in EMPTY BAG 1 BAG IV ONE; +TETRACAINE 0.5% OPHTH (PF) DROPS 4 ML BTL OP PRN
[2024-02-29] MEDS ORDERED: LIDOCAINE 1% (10MG/ML) FOR IV START INTRADERMA PRN (06:04)
[2024-02-29] MEDS: PHENYLEPHRINE 2.5% OPHTH DRP 2ML OP PRN (06:47)
[2024-02-29] MEDS: CYCLOPENTOLATE 1% OPHTH SOLN 2 ML BTL OP PRN (06:50)
[2024-02-29] MEDS: IV FLUID CONTINUATION 1,000 ML IV ONE ×2 (07:02→07:24)
[2024-02-29] MEDS: LACTATED RINGERS 1,000 ML IV SCH (07:02)
[2024-02-29 07:09] VITALS: TEMP 98.3
[2024-02-29] MEDS ORDERED: MIDAZOLAM 2 MG/2 ML VIAL ONE (07:23)
[2024-02-29] MEDS ORDERED: fentaNYL (PF) 50 MCG/ML 2 ML AMP ONE (07:23)
[2024-02-29] MEDS: EPINEPHrine (PF) 0.3 ML in BALANCED SALT IRRIG SOLN COMB2 500 ML IRRIGATION ONE (07:34)
[2024-02-29] MEDS: LIDOCAINE 1% (PF) 10MG/ML VIAL MISCELLANE ONE (07:42)
[2024-02-29] MEDS: BALANCED SALT IRRIG SOLN COMB2 15 ML IRRIG.SOLN INTRAOCULA ONE (07:42)
[2024-02-29] MEDS: MOXIFLOXACIN HCL 0.5% DROPS 3 ML BTL OP PRN (07:42)
[2024-02-29] MEDS: DUOVISC KIT (GREEN BOX) INTRAOCULA ONE (07:42)
[2024-02-29] MEDS: TIMOLOL 0.5% OPHTH DROPS 5 ML BTL OP PRN (07:43)
--- NOTE | 2024-02-29 07:58 | P.OP ---
Date of Procedure: 02/29/24 Preoperative Diagnosis: NS & CS Postoperative Diagnosis: same Procedure(s) Performed: PC IOL, OD Implants: MX60E 14.00 Anesthesia: MAC Surgeon: Franklyn Zamorano Pathology: none sent Condition: stable Disposition: same day Indications for Procedure: blurry vision Operative Findings: no complications
[2024-02-29 08:39] VITALS: BP 152/71; PULSE 59; RESP 18
--- NOTE | 2024-02-29 13:04 | OP ---
OPERATIVE REPORT DATE OF SERVICE : 02/29/2024 PREOPERATIVE DIAGNOSIS: Nuclear sclerosis, cortical sclerosis. POSTOPERATIVE DIAGNOSIS: Nuclear sclerosis, cortical sclerosis. OPERATION: Phacoemulsification of cataract and intraocular lens implant of the right eye. ESTIMATED BLOOD LOSS: Zero. SPECIMEN TAKEN: None. NARRATIVE: After obtaining the appropriate consent, the patient was brought to the operating room where the patient was placed under cardiac monitoring and prepped and draped in the usual sterile manner. At the 11 o'clock position, a 15-degree super sharp blade was used to create a paracentesis followed by instillation of 1% Xylocaine MPF 50:50 mix with BSS into the anterior chamber. This was followed by Duovisc viscoelastic to stabilize the anterior chamber. At the 9 o'clock position a self-sealing corneal flap incision was created using 2.8 mm win keratome. A cystotome was used to initiate a continuous tear capsulorrhexis which was completed with the Utrata forceps. A Binkhorst cannula was used to hydrodissect the lens nucleus followed by hydrodelineation. Phacoemulsification of the lens was performed utilizing phacochop in 24.17 seconds at 9.6% power. The remaining cortical material was removed using the irrigation aspiration mode followed by additional 1% Xylocaine MPF into the anterior chamber followed by viscoelastic to stabilize the capsular bag. A [employer] MX60E 14.0 diopter posterior chamber lens was placed into the capsular bag without difficulty. The remaining viscoelastic material was removed from the anterior chamber with the irrigation/aspiration. Balanced salt solution was used to normalize the intraocular pressure. The incision was checked for watertight integrity. The patient then received 2 drops of 0.5% timolol followed by 2 drops Vigamox, was lightly patched and shielded in the usual manner. There were no complications from the procedure. The patient tolerated the procedure well and was returned to recovery in good condition. MMODL / IJN: [id number] /
== END 2024-02-29 08:51 | disposition home or self-care (01) ==
LOC: OR 05:58
PROVIDERS: ATTEND Ophthalmology
DX: H25.11 Age-related nuclear cataract, right eye (principal); H25.011 Cortical age-related cataract, right eye; I25.10 Atherosclerotic heart disease of native coronary artery without angina pectoris; I25.2 Old myocardial infarction; I10 Essential (primary) hypertension; E78.5 Hyperlipidemia, unspecified; K21.9 Gastro-esophageal reflux disease without esophagitis; Z95.5 Presence of coronary angioplasty implant and graft; Z79.899 Other long term (current) drug therapy; Z88.8 Allergy status to other drugs, medicaments and biological substances; Z90.49 Acquired absence of other specified parts of digestive tract; Z98.890 Other specified postprocedural states